=== PATIENT | male | born 1970 | race African-American/Black ===

== ENCOUNTER 2025-07-21 08:18 | Emergency (ER) | payer OTHER ==
[~2025-07-21] VITALS: Ht 182.9 cm; Wt 114.0 kg
[2025-07-21 08:20] VITALS: O2SAT 99
[2025-07-21 09:18] LABS: BASOPHILS % 0.6 % (0.0-2.0); EOSINOPHILS % 0.8 % (0.0-5.0); HEMATOCRIT. 45.2 % (42.0-52.0); HEMOGLOBIN. 15.4 g/dL (14.0-18.0); LYMPHOCYTES % 26.5 % (20.0-50.0); MEAN PLATELET VOLUME 8.3 fl (7.4-10.4); MONOCYTES % 5.5 % (2.0-8.0); NEUTROPHILS % 66.6 % (40.0-76.0); PLATELET 284 x1000/uL (130-400); RED BLOOD CELL COUNT 5.56 mill/uL (4.7-6.1); RED CELL DISTRIBUTION WIDTH 15.0 % (11.6-14.6)
[2025-07-21] MEDS: HYDRALAZINE 20MG/ML VIAL IV ONE (09:31)
[2025-07-21 09:38] LABS: CREATININE 1.0 mg/dL (0.6-1.3)
[2025-07-21 09:39] LABS: TROPONIN I HIGH SENSITIVITY 4 ng/L (3.0-53); UREA NITROGEN BLOOD 13 mg/dL (9-23)
[2025-07-21] MEDS ORDERED: ONDANSETRON HCL 4MG/2ML INJ IV PRN (10:45)
[2025-07-21] MEDS ORDERED: IPRATROPIUM/ALBUTEROL 0.5-3(2.5)MG/3ML NEB HHN PRN (10:45)
[2025-07-21] MEDS ORDERED: CLONIDINE 0.1MG TABLET PO PRN (10:45)
[2025-07-21] MEDS ORDERED: ACETAMINOPHEN 325MG TABLET PO PRN ×2 (10:45)
[2025-07-21] MEDS ORDERED: GUAIFENESIN 200MG/10ML SUGAR FREE UDC PO PRN (10:45)
[2025-07-21] MEDS ORDERED: DOCUSATE SODIUM 100MG CAPSULE PO PRN (10:45)
[2025-07-21] MEDS: HYDROCHLOROTHIAZIDE 25MG TABLET PO SCH (11:00)
[2025-07-21] MEDS: LOSARTAN 100 MG TABLET PO SCH (11:00)
[2025-07-21] MEDS ORDERED: DEXTROSE 50% WATER 50ML SYRINGE IV PRN (11:00)
[2025-07-21] MEDS: AMLODIPINE 5MG TABLET PO SCH (11:25)
[2025-07-21] MEDS ORDERED: MECLIZINE 12.5MG TABLET PO PRN (11:30)
[2025-07-21 11:49] VITALS: BP 145/72; PULSE 90; RESP 13; TEMP 37.3; O2SAT 99
[2025-07-21 12:14] LABS: FOLIC ACID (FOLATE) SERUM 11.05 ng/mL (>5.38); VITAMIN B12 SERUM 320 pg/mL (211-911)
[2025-07-21] MEDS ORDERED: BLOOD SUGAR DIAGNOSTIC STRIP TEST SCH (13:00)
[2025-07-21] MEDS ORDERED: INSULIN LISPRO 100 UNITS/ML SUBCUT SCH (13:20)
[2025-07-21] MEDS ORDERED: ATORVASTATIN CALCIUM 10MG TABLET PO SCH (21:00)
== END 2025-07-21 11:59 | disposition left against medical advice (07) ==
LOC: EDBEDREQ 08:37 → ER 08:49 → EDBEDREQTM 10:15 → EDBEDREQ 10:15 → ENRESERV 11:28 → CANBEDREQ 11:54 → ER 11:59
DX: I16.0 Hypertensive urgency (principal); I10 Essential (primary) hypertension; E11.65 Type 2 diabetes mellitus with hyperglycemia; E78.00 Pure hypercholesterolemia, unspecified; Z79.899 Other long term (current) drug therapy; Z88.8 Allergy status to other drugs, medicaments and biological substances
CPT/HCPCS: 80048; 82607; 82746; 83036; 83880; 85025; 84484; 36415; 71045; 93005; 96374; 99285; J0360; Z7610 ×2